=== PATIENT | female | born 1995 | race Caucasian/White ===

== ENCOUNTER 2017-04-06 05:45 | Inpatient (IN) ==
[2017-04-06] MEDS ORDERED: ONDANSETRON 4 MG/2 ML VIAL IV PRN (06:15)
[2017-04-06] MEDS ORDERED: ACETAMINOPHEN 325 MG TABLET PO PRN (06:15)
[2017-04-06] MEDS ORDERED: MEPERIDINE 50 MG/1 ML VIAL IV PRN (06:15)
[2017-04-06] MEDS: LACTATED RINGERS 1,000 ML IV SCH ×3 (06:20→17:13)
[2017-04-06] MEDS ORDERED: OXYTOCIN/LR 20 UNIT/1,000 ML BAG IV SCH (06:30)
[2017-04-06 06:42] LABS: Basophils % 0.4 % (0.0-0.8); Eosinophils # 0.1 10*3/uL (0.0-0.87); Eosinophils % 1.3 % (0.00-10.9); Hematocrit 30.6 VOL% (35.7-47.0); Hemoglobin 9.9 GM/DL (12.0-16.0); Immature Granulocytes % 0.8 %; Immature Granulocytes Absolute 0.06 #; Lymphocytes # 1.6 10*3/uL (1.4-4.0); Lymphocytes % 20.1 % (21.3-54.2); Mean Corpuscular HGB Conc 32.4 GM/DL (32-36); Mean Corpuscular Hemoglobin 28 PG (27-34); Mean Corpuscular Volume 86.9 FL (87-102); Mean Platelet Volume 10.7 FL (9.6-12.0); Monocytes # 0.6 10*3/uL (0.11-0.8); Monocytes % 7.2 % (1.7-12.7); Neutrophils # 5.6 10*3/uL (1.4-7.4); Neutrophils % 70.2 % (38.7-73.9); Platelet Count 229 T/CUMM (130-400); Red Blood Count 3.52 MC/CUMM (3.8-5.5); Red Cell Distribution Width 15.2 % (9.3-17.3); White Blood Count 7.9 T/CUMM (4-12)
[2017-04-06] MEDS ORDERED: INFLUENZA VIRUS VACCINE 0.5 ML SYRINGE IM ONE (07:00)
[2017-04-06 07:28] LABS: Alanine Aminotransferase 20 U/L (13-56); Albumin 2.2 G/DL (3.4-5.0); Alkaline Phosphatase 188 U/L (45-117); Aspartate Amino Transferase 18 U/L (0-37); Bilirubin,Total < 0.39 MG/DL (0.2-1.0); Blood Urea Nitrogen 6 MG/DL (7-18); Glucose 123 MG/DL (74-106); Osmolality,Calculated 271.8 MOS/KG (273-304); Potassium 3.9 MMOL/L (3.5-5.1); Sodium 137 MMOL/L (136-145); Total Protein 5.6 G/DL (6.4-8.3)
[2017-04-06] MEDS ORDERED: FAMOTIDINE 20 MG/2 ML VIAL IV ONE (12:09)
[2017-04-06] MEDS ORDERED: diphenhydrAMINE 50 MG/1 ML VIAL IV PRN ×2 (12:09)
[2017-04-06] MEDS ORDERED: CITRIC ACID/SODIUM CITRATE 30 ML UDCUP PO ONE (12:09)
[2017-04-06] MEDS ORDERED: LACTATED RINGERS 1,000 ML IV ONE (12:09)
[2017-04-06] MEDS ORDERED: PROMETHAZINE 25 MG/1 ML VIAL IM ONE (12:09)
[2017-04-06] MEDS ORDERED: ePHEDrine 50 MG/ML AMP IV PRN (12:09)
[2017-04-06] MEDS ORDERED: hydrOXYzine HCL 25 MG/1 ML VIAL IM PRN (12:09)
[2017-04-06] MEDS ORDERED: fentaNYL 2 MCG/ROPIV 0.2% EPID 150 ML EPIDURAL SCH (12:30)
[2017-04-06 14:15] LABS: Apearance,Urine CLEAR (Clear); Bilirubin,Urine Negative (Negative); Blood, Urine Negative (Negative); Glucose,Urine (UA) Negative (Negative); Ketones,Urine Negative (Negative); Mucus,Urine Occasional /LPF (Occasional); Nitrite,Urine Negative (Negative); Protein,Urine Negative; RBC,Urine 1 /HPF (0-4); Urine Color Straw (Yellow); Urine Specific Gravity 1.006 (1.001-1.035); Urine Urobilinogen < 2.0 EU/DL (0.2-1.0); WBC,Urine <1 /HPF (0-6)
[2017-04-06] MEDS ORDERED: DIPH/TET/ACEL PERT BOOSTER VACCINE 0.5 ML VIAL IM ONE (20:07)
[2017-04-06] MEDS ORDERED: oxyCODONE/ACETAMINOPHEN 5-325 MG TABLET PO PRN (20:07)
[2017-04-06] MEDS ORDERED: WITCH HAZEL PADS 100/JAR TOP PRN (20:07)
[2017-04-06] MEDS ORDERED: BISACODYL 10 MG SUPP RECTAL PRN (20:07)
[2017-04-06] MEDS ORDERED: BENZOCAINE 20%/MENTHOL 0.5% SPRAY 56 GM CAN TOP PRN (20:07)
[2017-04-06] MEDS ORDERED: ACETAMINOPHEN/CODEINE 300-30 MG TABLET PO PRN ×2 (20:07)
[2017-04-06] MEDS ORDERED: LANOLIN 50% CREAM 0.3 OZ TUBE TOP PRN (20:07)
[2017-04-06] MEDS ORDERED: HYDROCORTISONE 2.5% RECTAL CREAM 30 GM TUBE TOP PRN (20:07)
[2017-04-06] MEDS ORDERED: RHO(D) IMMUNE GLOBULIN 300 MCG SYRINGE IM ONE (20:07)
[2017-04-06] MEDS ORDERED: MEASLES/MUMPS/RUBELLA VACCINE 0.5 ML VIAL SUBCUT ONE (20:07)
[2017-04-06] MEDS ORDERED: OXYTOCIN/LR 20 UNIT/1,000 ML BAG IV ONE (20:25)
[2017-04-06] MEDS: oxyCODONE/ACETAMINOPHEN 5-325 MG TABLET PO PRN (22:51)
[2017-04-06] MEDS: DOCUSATE SODIUM 100 MG CAPSULE PO SCH (22:51)
[2017-04-07 07:32] LABS: Basophils % 0.2 % (0.0-0.8); Eosinophils # 0.1 10*3/uL (0.0-0.87); Eosinophils % 0.8 % (0.00-10.9); Hematocrit 28.4 VOL% (35.7-47.0); Immature Granulocytes % 0.6 %; Immature Granulocytes Absolute 0.06 #; Lymphocytes # 1.4 10*3/uL (1.4-4.0); Lymphocytes % 13.8 % (21.3-54.2); Mean Corpuscular HGB Conc 31.7 GM/DL (32-36); Mean Corpuscular Hemoglobin 28 PG (27-34); Mean Corpuscular Volume 87.9 FL (87-102); Mean Platelet Volume 10.8 FL (9.6-12.0); Monocytes # 0.6 10*3/uL (0.11-0.8); Neutrophils # 8.2 10*3/uL (1.4-7.4); Neutrophils % 78.6 % (38.7-73.9); Platelet Count 184 T/CUMM (130-400); Red Blood Count 3.23 MC/CUMM (3.8-5.5); Red Cell Distribution Width 15.1 % (9.3-17.3); White Blood Count 10.5 T/CUMM (4-12)
[2017-04-07] MEDS: IBUPROFEN 800 MG TABLET PO PRN ×2 (09:23→18:33)
[2017-04-07] MEDS: MULTIVITAMIN (PRENATAL) TABLET PO SCH (09:23)
[2017-04-07] MEDS: DOCUSATE SODIUM 100 MG CAPSULE PO SCH ×2 (09:24→21:11)
[2017-04-07] MEDS: oxyCODONE/ACETAMINOPHEN 5-325 MG TABLET PO PRN ×2 (09:24→18:34)
[2017-04-08 08:20] VITALS: BP 107/68
[2017-04-08] MEDS ORDERED: MEASLES/MUMPS/RUBELLA VACCINE 0.5 ML VIAL SUBCUT ONE (09:18)
[2017-04-08] MEDS: DOCUSATE SODIUM 100 MG CAPSULE PO SCH (09:20)
[2017-04-08] MEDS: MULTIVITAMIN (PRENATAL) TABLET PO SCH (09:20)
== END 2017-04-08 11:30 | disposition home or self-care (01) | DRG 775 ==
LOC: EDSTATUS 05:45 → N.LDOUT 05:45 → N.LD 05:50 → N.OB 20:08
PROVIDERS: ADMIT Obstetrics & Gynecology; ATTEND Obstetrics & Gynecology